=== PATIENT | female | born 1950 | race Caucasian/White ===

== ENCOUNTER 2018-03-25 19:53 | Inpatient (IN) | payer MEDICAID, OTHER ==
[2018-03-25] MEDS: ACETAMINOPHEN 500 MG TAB PO (22:32)
[2018-03-26 00:20] LABS: ADD MAN DIFF? NO
[2018-03-26 00:22] LABS: ABNORMAL IP MESSAGE 1; BASOPHILS % 0.2 % (0.0-2.0); EOSINOPHILS % 0.1 % (0.0-7.0); HEMATOCRIT 37.7 % (37.0-47.0); HEMOGLOBIN 12.6 g/dl (12.0-16.0); LYMPHOCYTES # 0.5 10^3/ul (0.8-2.9); LYMPHOCYTES % 3.8 % (15.0-51.0); MEAN CORPUSCULAR HEMOGLOBIN 30.5 pg (29.0-33.0); MEAN CORPUSCULAR HGB CONC 33.4 g/dl (32.0-37.0); MEAN CORPUSCULAR VOLUME 91.3 fl (82.0-101.0); MEAN PLATELET VOLUME 10.6 fl (7.4-10.4); MONOCYTE # 0.8 10^3/ul (0.3-0.9); MONOCYTES % 5.9 % (0.0-11.0); NEUTROPHIL # 12.3 10^3/ul (1.6-7.5); NEUTROPHILS % 89.1 % (39.0-77.0); PLATELET COUNT 218 10^3/UL (140-415); RED BLOOD COUNT 4.13 10^6/ul (4.20-5.40); RED CELL DISTRIBUTION WIDTH 11.9 % (11.5-14.5)
[2018-03-26 00:22] LABS: WHITE BLOOD COUNT 13.8 10^3/ul (4.8-10.8)
[2018-03-26 00:23] LABS: POSITIVE DIFF @See below
[2018-03-26] MEDS: DEXTROSE 5%-0.45% NACL 1,000 ML IV ×3 (00:41→17:16)
[2018-03-26 00:45] LABS: INR 1.08; PROTIME 14.1 Sec (11.9-14.9); PT RATIO 1.1
[2018-03-26 00:46] LABS: ALANINE AMINOTRANSFERASE 28 IU/L (13-69); ALBUMIN 4.7 g/dl (3.3-4.9); ALBUMIN/GLOBULIN RATIO 1.51; ALKALINE PHOSPHATASE 75 IU/L (42-121); ANION GAP 12 (5-13); ASPARTATE AMINO TRANSFERASE 50 IU/L (15-46); BILIRUBIN,INDIRECT 0.4 mg/dl (0-1.1); BILIRUBIN,TOTAL 0.4 mg/dl (0.2-1.3); BLOOD UREA NITROGEN 16 mg/dl (7-20); CALCIUM 9.9 mg/dl (8.4-10.2); CARBON DIOXIDE 26 mmol/L (21-31); CHLORIDE 103 mmol/L (97-110); CREATININE 0.53 mg/dl (0.44-1.00); Estimated GFR > 60 mL/min (>60); GLUCOSE 170 mg/dl (70-220); LIPASE 115 U/L (23-300); PARTIAL THROMBOPLASTIN TIME 27.6 Sec (23.0-35.0); POTASSIUM 4.1 mmol/L (3.5-5.1); SODIUM 141 mmol/L (135-144); TOTAL PROTEIN 7.8 g/dl (6.1-8.1)
[2018-03-26] MEDS ORDERED: NACL 0.9% 3 ML SYG IV (01:00)
[2018-03-26] MEDS: PANTOPRAZOLE 40 MG INJ IV (05:40)
[2018-03-26] MEDS: morphine 2 MG INJ IV ×2 (13:56→18:28)
[2018-03-26] MEDS: ONDANSETRON 4 MG INJ IV (21:59)
[2018-03-27] MEDS: DEXTROSE 5%-0.45% NACL 1,000 ML IV (05:17)
[2018-03-27] MEDS: PANTOPRAZOLE 40 MG INJ IV (05:53)
[2018-03-27 06:21] LABS: ADD MAN DIFF? NO
[2018-03-27 06:23] LABS: WHITE BLOOD COUNT 6.3 10^3/ul (4.8-10.8)
[2018-03-27 06:23] LABS: BASOPHILS % 0.5 % (0.0-2.0); EOSINOPHILS # 0.1 10^3/ul (0.0-0.5); EOSINOPHILS % 1.6 % (0.0-7.0); HEMATOCRIT 34.3 % (37.0-47.0); HEMOGLOBIN 11.3 g/dl (12.0-16.0); LYMPHOCYTES # 1.5 10^3/ul (0.8-2.9); LYMPHOCYTES % 23.9 % (15.0-51.0); MEAN CORPUSCULAR HEMOGLOBIN 30.2 pg (29.0-33.0); MEAN CORPUSCULAR HGB CONC 32.9 g/dl (32.0-37.0); MEAN CORPUSCULAR VOLUME 91.7 fl (82.0-101.0); MEAN PLATELET VOLUME 10.9 fl (7.4-10.4); MONOCYTE # 0.6 10^3/ul (0.3-0.9); MONOCYTES % 9.3 % (0.0-11.0); NEUTROPHIL # 4.1 10^3/ul (1.6-7.5); NEUTROPHILS % 64.4 % (39.0-77.0); PLATELET COUNT 179 10^3/UL (140-415); RED BLOOD COUNT 3.74 10^6/ul (4.20-5.40); RED CELL DISTRIBUTION WIDTH 11.9 % (11.5-14.5)
[2018-03-27 07:02] LABS: ALANINE AMINOTRANSFERASE 21 IU/L (13-69); ALBUMIN 3.7 g/dl (3.3-4.9); ALBUMIN/GLOBULIN RATIO 1.23; ALKALINE PHOSPHATASE 47 IU/L (42-121); ANION GAP 7 (5-13); ASPARTATE AMINO TRANSFERASE 26 IU/L (15-46); BILIRUBIN,INDIRECT 0.6 mg/dl (0-1.1); BILIRUBIN,TOTAL 0.6 mg/dl (0.2-1.3); BLOOD UREA NITROGEN 9 mg/dl (7-20); CALCIUM 9.1 mg/dl (8.4-10.2); CARBON DIOXIDE 29 mmol/L (21-31); CHLORIDE 103 mmol/L (97-110); CREATININE 0.58 mg/dl (0.44-1.00); Estimated GFR > 60 mL/min (>60); GLUCOSE 115 mg/dl (70-220); MAGNESIUM 1.9 mg/dl (1.7-2.5); POTASSIUM 3.8 mmol/L (3.5-5.1); SODIUM 139 mmol/L (135-144); TOTAL PROTEIN 6.7 g/dl (6.1-8.1)
[2018-03-27 07:10] LABS: HEMOGLOBIN A1C 5.2 % (0-5.9)
[2018-03-27 07:22] LABS: THYROID STIMULATING HORMONE 0.392 MIU/L (0.465-4.680)
[2018-03-27 10:42] LABS: FREE T4 (FREE THYROXINE) 1.43 ng/dl (0.78-2.44)
[2018-03-27] MEDS: ENOXAPARIN 40 MG/0.4 ML SYG SC (12:02)
[2018-03-27] MEDS: morphine 2 MG INJ IV (16:08)
[2018-03-28] MEDS: morphine 2 MG INJ IV ×5 (02:41→23:06)
[2018-03-28] MEDS: ONDANSETRON 4 MG INJ IV ×2 (02:41→12:50)
[2018-03-28] MEDS: PANTOPRAZOLE 40 MG INJ IV (05:06)
[2018-03-28 05:28] LABS: ADD MAN DIFF? NO
[2018-03-28 05:32] LABS: BASOPHILS % 0.3 % (0.0-2.0); EOSINOPHILS # 0.1 10^3/ul (0.0-0.5); HEMATOCRIT 33.6 % (37.0-47.0); HEMOGLOBIN 11.2 g/dl (12.0-16.0); LYMPHOCYTES # 1.3 10^3/ul (0.8-2.9); LYMPHOCYTES % 19.9 % (15.0-51.0); MEAN CORPUSCULAR HEMOGLOBIN 30.7 pg (29.0-33.0); MEAN CORPUSCULAR HGB CONC 33.3 g/dl (32.0-37.0); MEAN CORPUSCULAR VOLUME 92.1 fl (82.0-101.0); MEAN PLATELET VOLUME 11.2 fl (7.4-10.4); MONOCYTE # 0.5 10^3/ul (0.3-0.9); MONOCYTES % 7.8 % (0.0-11.0); NEUTROPHIL # 4.6 10^3/ul (1.6-7.5); NEUTROPHILS % 69.7 % (39.0-77.0); PLATELET COUNT 179 10^3/UL (140-415); RED BLOOD COUNT 3.65 10^6/ul (4.20-5.40); RED CELL DISTRIBUTION WIDTH 11.9 % (11.5-14.5)
[2018-03-28 05:32] LABS: WHITE BLOOD COUNT 6.5 10^3/ul (4.8-10.8)
[2018-03-28 06:09] LABS: ALANINE AMINOTRANSFERASE 21 IU/L (13-69); ALBUMIN 3.6 g/dl (3.3-4.9); ALKALINE PHOSPHATASE 54 IU/L (42-121); ANION GAP 7 (5-13); ASPARTATE AMINO TRANSFERASE 26 IU/L (15-46); BILIRUBIN,INDIRECT 0.4 mg/dl (0-1.1); BILIRUBIN,TOTAL 0.4 mg/dl (0.2-1.3); BLOOD UREA NITROGEN 20 mg/dl (7-20); CALCIUM 9.3 mg/dl (8.4-10.2); CARBON DIOXIDE 28 mmol/L (21-31); CHLORIDE 105 mmol/L (97-110); CREATININE 0.63 mg/dl (0.44-1.00); Estimated GFR > 60 mL/min (>60); GLUCOSE 97 mg/dl (70-220); POTASSIUM 4.1 mmol/L (3.5-5.1); SODIUM 140 mmol/L (135-144); TOTAL PROTEIN 6.6 g/dl (6.1-8.1)
[2018-03-28 06:39] LABS: PHOSPHORUS 3.9 mg/dl (2.5-4.9)
[2018-03-28] MEDS: ENOXAPARIN 40 MG/0.4 ML SYG SC (09:00)
[2018-03-28] MEDS: POLYETHYLENE GLYCOL 17 GM PACKET PO (23:19)
[2018-03-29] MEDS: hydrALAzine 20 MG INJ IV (02:54)
[2018-03-29] MEDS: ONDANSETRON 4 MG INJ IV (03:40)
[2018-03-29 05:08] LABS: ADD MAN DIFF? NO
[2018-03-29 05:22] LABS: WHITE BLOOD COUNT 11.1 10^3/ul (4.8-10.8)
[2018-03-29 05:22] LABS: BASOPHIL # 0.1 10^3/ul (0.0-0.1); BASOPHILS % 0.4 % (0.0-2.0); EOSINOPHILS # 0.1 10^3/ul (0.0-0.5); EOSINOPHILS % 1.1 % (0.0-7.0); HEMATOCRIT 32.6 % (37.0-47.0); LYMPHOCYTES # 1.3 10^3/ul (0.8-2.9); MEAN CORPUSCULAR HEMOGLOBIN 30.5 pg (29.0-33.0); MEAN CORPUSCULAR HGB CONC 33.7 g/dl (32.0-37.0); MEAN CORPUSCULAR VOLUME 90.3 fl (82.0-101.0); MEAN PLATELET VOLUME 11.1 fl (7.4-10.4); MONOCYTE # 0.8 10^3/ul (0.3-0.9); MONOCYTES % 6.7 % (0.0-11.0); NEUTROPHIL # 8.8 10^3/ul (1.6-7.5); NEUTROPHILS % 79.4 % (39.0-77.0); PLATELET COUNT 204 10^3/UL (140-415); RED BLOOD COUNT 3.61 10^6/ul (4.20-5.40); RED CELL DISTRIBUTION WIDTH 11.7 % (11.5-14.5)
[2018-03-29] MEDS: PANTOPRAZOLE 40 MG INJ IV (05:44)
[2018-03-29 05:49] LABS: ANION GAP 7 (5-13); BLOOD UREA NITROGEN 24 mg/dl (7-20); CALCIUM 9.2 mg/dl (8.4-10.2); CARBON DIOXIDE 28 mmol/L (21-31); CHLORIDE 103 mmol/L (97-110); CREATININE 0.78 mg/dl (0.44-1.00); Estimated GFR > 60 mL/min (>60); GLUCOSE 127 mg/dl (70-220); SODIUM 138 mmol/L (135-144)
[2018-03-29] MEDS ORDERED: METOCLOPRAMIDE 10 MG INJ (07:00)
[2018-03-29] MEDS: ENOXAPARIN 40 MG/0.4 ML SYG SC (08:58)
[2018-03-29] MEDS ORDERED: ONDANSETRON 4 MG INJ (09:49)
[2018-03-29] MEDS ORDERED: CEFAZOLIN 1 GM INJ (09:49)
[2018-03-29] MEDS ORDERED: LIDOCAINE 2% (SDV) 5 ML INJ (09:49)
[2018-03-29] MEDS ORDERED: PROPOFOL 20 ML (09:49)
[2018-03-29] MEDS ORDERED: MIDAZOLAM 1 MG/ML 2 ML INJ (10:03)
[2018-03-29] MEDS ORDERED: FENTAnyl 50 MCG/ML VIAL (10:04)
[2018-03-29] MEDS ORDERED: HYDROmorphONE 1 MG/5 ML IV SYRINGE IV ×3 (11:00)
[2018-03-29] MEDS ORDERED: DIPHENHYDRAMINE 50 MG INJ IV (11:00)
[2018-03-29] MEDS ORDERED: FENTAnyl 50 MCG/ML VIAL IV ×2 (11:00)
[2018-03-29] MEDS ORDERED: LABETALOL HCL 20MG INJ IV (11:00)
[2018-03-29] MEDS ORDERED: hydrALAzine 20 MG INJ IV (11:00)
[2018-03-29] MEDS ORDERED: ONDANSETRON 4 MG INJ IV (11:00)
[2018-03-29] MEDS ORDERED: ROPIVACAINE 0.5 % 30 ML VIAL (11:11)
[2018-03-29] MEDS ORDERED: PHENYLephrine (100 MCG/ML) 5ML SYG (11:46)
[2018-03-29] MEDS ORDERED: PHENYLephrine 10 MG INJ (11:56)
[2018-03-29] MEDS: POLYMYXIN/BACITRACIN 1L IRRIG (12:05)
[2018-03-29] MEDS ORDERED: LABETALOL HCL 20MG INJ (13:58)
[2018-03-29] MEDS: MEPERIDINE 25 MG INJ IV (14:53)
[2018-03-29 15:44] LABS: ADD MAN DIFF? NO
[2018-03-29 15:46] LABS: BASOPHILS % 0.5 % (0.0-2.0); EOSINOPHILS % 0.1 % (0.0-7.0); HEMATOCRIT 34.6 % (37.0-47.0); HEMOGLOBIN 11.2 g/dl (12.0-16.0); LYMPHOCYTES # 1.2 10^3/ul (0.8-2.9); MEAN CORPUSCULAR HGB CONC 32.4 g/dl (32.0-37.0); MEAN CORPUSCULAR VOLUME 92.8 fl (82.0-101.0); MEAN PLATELET VOLUME 11.1 fl (7.4-10.4); MONOCYTE # 0.6 10^3/ul (0.3-0.9); MONOCYTES % 6.8 % (0.0-11.0); NEUTROPHIL # 6.5 10^3/ul (1.6-7.5); PLATELET COUNT 209 10^3/UL (140-415); RED BLOOD COUNT 3.73 10^6/ul (4.20-5.40); RED CELL DISTRIBUTION WIDTH 11.8 % (11.5-14.5)
[2018-03-29 15:46] LABS: WHITE BLOOD COUNT 8.4 10^3/ul (4.8-10.8)
[2018-03-29] MEDS ORDERED: NACL 0.9% 3 ML SYG IV (16:00)
[2018-03-29] MEDS: CEFAZOLIN 2 GM/50 ML (PMX) 50 ML IVPB (18:42)
[2018-03-29] MEDS: SOD CHLORIDE 0.9% 1,000 ML IV ×2 (18:45→23:07)
[2018-03-29] MEDS: morphine 2 MG INJ IV (19:32)
[2018-03-29] MEDS: HYDROCODONE/APAP (5/325) TAB PO (20:48)
[2018-03-29] MEDS: morphine 4 MG/ML VIAL IV (22:40)
[2018-03-30] MEDS: CEFAZOLIN 2 GM/50 ML (PMX) 50 ML IVPB ×2 (00:21→08:36)
[2018-03-30] MEDS: HYDROCODONE/APAP (5/325) TAB PO ×2 (02:45→07:57)
[2018-03-30] MEDS: PANTOPRAZOLE 40 MG INJ IV (05:34)
[2018-03-30] MEDS: morphine 4 MG/ML VIAL IV ×2 (05:35→09:56)
[2018-03-30 06:09] LABS: ADD MAN DIFF? NO
[2018-03-30 06:13] LABS: WHITE BLOOD COUNT 7.8 10^3/ul (4.8-10.8)
[2018-03-30 06:13] LABS: BASOPHILS % 0.3 % (0.0-2.0); EOSINOPHILS # 0.1 10^3/ul (0.0-0.5); EOSINOPHILS % 0.6 % (0.0-7.0); HEMATOCRIT 28.5 % (37.0-47.0); HEMOGLOBIN 9.6 g/dl (12.0-16.0); LYMPHOCYTES # 1.1 10^3/ul (0.8-2.9); LYMPHOCYTES % 13.4 % (15.0-51.0); MEAN CORPUSCULAR HEMOGLOBIN 30.7 pg (29.0-33.0); MEAN CORPUSCULAR HGB CONC 33.7 g/dl (32.0-37.0); MEAN CORPUSCULAR VOLUME 91.1 fl (82.0-101.0); MEAN PLATELET VOLUME 10.8 fl (7.4-10.4); MONOCYTE # 1.1 10^3/ul (0.3-0.9); MONOCYTES % 14.6 % (0.0-11.0); NEUTROPHIL # 5.5 10^3/ul (1.6-7.5); NEUTROPHILS % 70.6 % (39.0-77.0); PLATELET COUNT 170 10^3/UL (140-415); RED BLOOD COUNT 3.13 10^6/ul (4.20-5.40); RED CELL DISTRIBUTION WIDTH 11.8 % (11.5-14.5)
[2018-03-30 06:37] LABS: ANION GAP 4 (5-13); BLOOD UREA NITROGEN 16 mg/dl (7-20); CALCIUM 8.6 mg/dl (8.4-10.2); CARBON DIOXIDE 31 mmol/L (21-31); CHLORIDE 102 mmol/L (97-110); CREATININE 0.61 mg/dl (0.44-1.00); Estimated GFR > 60 mL/min (>60); GLUCOSE 137 mg/dl (70-220); POTASSIUM 3.9 mmol/L (3.5-5.1); SODIUM 137 mmol/L (135-144)
[2018-03-30] MEDS: hydrALAzine 20 MG INJ IV ×2 (07:58→12:48)
[2018-03-30] MEDS: ENOXAPARIN 40 MG/0.4 ML SYG SC (08:37)
[2018-03-30] MEDS ORDERED: ENOXAPARIN 40 MG/0.4 ML SYG SC (09:00)
[2018-03-30] MEDS: METOPROLOL (XL) 50 MG TAB PO (12:48)
[2018-03-30] MEDS: HYDROmorphONE 0.5 MG/0.5 ML SYG IV ×4 (12:49→23:53)
[2018-03-30] MEDS: ONDANSETRON 4 MG INJ IV (14:03)
[2018-03-31] MEDS: HYDROmorphONE 0.5 MG/0.5 ML SYG IV ×3 (03:48→10:44)
[2018-03-31] MEDS: PANTOPRAZOLE (EC) 40 MG TAB PO (05:27)
[2018-03-31 06:28] LABS: ADD MAN DIFF? NO
[2018-03-31 06:30] LABS: BASOPHILS % 0.3 % (0.0-2.0); EOSINOPHILS # 0.1 10^3/ul (0.0-0.5); EOSINOPHILS % 0.8 % (0.0-7.0); HEMATOCRIT 28.3 % (37.0-47.0); HEMOGLOBIN 9.5 g/dl (12.0-16.0); LYMPHOCYTES # 1.2 10^3/ul (0.8-2.9); LYMPHOCYTES % 11.8 % (15.0-51.0); MEAN CORPUSCULAR HEMOGLOBIN 30.7 pg (29.0-33.0); MEAN CORPUSCULAR HGB CONC 33.6 g/dl (32.0-37.0); MEAN CORPUSCULAR VOLUME 91.6 fl (82.0-101.0); MEAN PLATELET VOLUME 11.1 fl (7.4-10.4); MONOCYTE # 1.1 10^3/ul (0.3-0.9); MONOCYTES % 10.5 % (0.0-11.0); NEUTROPHIL # 7.8 10^3/ul (1.6-7.5); NEUTROPHILS % 75.9 % (39.0-77.0); PLATELET COUNT 187 10^3/UL (140-415); RED BLOOD COUNT 3.09 10^6/ul (4.20-5.40); RED CELL DISTRIBUTION WIDTH 11.9 % (11.5-14.5)
[2018-03-31 06:30] LABS: WHITE BLOOD COUNT 10.3 10^3/ul (4.8-10.8)
[2018-03-31 07:05] LABS: ANION GAP 12 (5-13); BLOOD UREA NITROGEN 11 mg/dl (7-20); CARBON DIOXIDE 30 mmol/L (21-31); CHLORIDE 95 mmol/L (97-110); CREATININE 0.58 mg/dl (0.44-1.00); Estimated GFR > 60 mL/min (>60); GLUCOSE 102 mg/dl (70-220); POTASSIUM 3.3 mmol/L (3.5-5.1); SODIUM 137 mmol/L (135-144)
[2018-03-31 07:31] LABS: THYROID STIMULATING HORMONE 0.138 MIU/L (0.465-4.680)
[2018-03-31] MEDS: METOPROLOL (XL) 50 MG TAB PO (08:58)
[2018-03-31] MEDS: ENOXAPARIN 40 MG/0.4 ML SYG SC (08:58)
[2018-03-31] MEDS: hydrALAzine 20 MG INJ IV (10:44)
[2018-03-31] MEDS: POTASSIUM CHLORIDE (SR) 20 MEQ TAB PO (11:15)
[2018-03-31] MEDS: AMLODIPINE 5 MG TAB PO ×2 (11:15→20:18)
[2018-03-31] MEDS ORDERED: AMLODIPINE 5 MG TAB PO (11:30)
[2018-03-31] MEDS: HYDROCODONE/APAP (5/325) TAB PO ×2 (14:12→19:05)
[2018-04-01] MEDS: HYDROmorphONE 0.5 MG/0.5 ML SYG IV ×4 (00:38→20:39)
[2018-04-01] MEDS: PANTOPRAZOLE (EC) 40 MG TAB PO (05:55)
[2018-04-01] MEDS: HYDROCODONE/APAP (5/325) TAB PO ×2 (05:55→16:54)
[2018-04-01 07:18] LABS: ANION GAP 9 (5-13); BLOOD UREA NITROGEN 12 mg/dl (7-20); CALCIUM 8.8 mg/dl (8.4-10.2); CARBON DIOXIDE 32 mmol/L (21-31); CHLORIDE 96 mmol/L (97-110); CREATININE 0.55 mg/dl (0.44-1.00); Estimated GFR > 60 mL/min (>60); GLUCOSE 118 mg/dl (70-220); POTASSIUM 3.6 mmol/L (3.5-5.1); SODIUM 137 mmol/L (135-144)
[2018-04-01] MEDS: AMLODIPINE 5 MG TAB PO ×2 (08:34→20:39)
[2018-04-01] MEDS: METOPROLOL (XL) 50 MG TAB PO (08:35)
[2018-04-01] MEDS: ENOXAPARIN 40 MG/0.4 ML SYG SC (08:36)
[2018-04-02] MEDS: HYDROCODONE/APAP (5/325) TAB PO ×4 (00:52→20:48)
[2018-04-02] MEDS: PANTOPRAZOLE (EC) 40 MG TAB PO (05:14)
[2018-04-02] MEDS: HYDROmorphONE 0.5 MG/0.5 ML SYG IV ×4 (05:15→22:07)
[2018-04-02 06:13] LABS: ADD MAN DIFF? NO
[2018-04-02 06:28] LABS: WHITE BLOOD COUNT 7.1 10^3/ul (4.8-10.8)
[2018-04-02 06:28] LABS: BASOPHILS % 0.4 % (0.0-2.0); EOSINOPHILS # 0.2 10^3/ul (0.0-0.5); EOSINOPHILS % 3.1 % (0.0-7.0); HEMATOCRIT 26.2 % (37.0-47.0); HEMOGLOBIN 8.7 g/dl (12.0-16.0); LYMPHOCYTES # 1.5 10^3/ul (0.8-2.9); LYMPHOCYTES % 21.2 % (15.0-51.0); MEAN CORPUSCULAR HEMOGLOBIN 30.9 pg (29.0-33.0); MEAN CORPUSCULAR HGB CONC 33.2 g/dl (32.0-37.0); MEAN CORPUSCULAR VOLUME 92.9 fl (82.0-101.0); MEAN PLATELET VOLUME 10.9 fl (7.4-10.4); MONOCYTE # 0.7 10^3/ul (0.3-0.9); MONOCYTES % 9.9 % (0.0-11.0); NEUTROPHIL # 4.6 10^3/ul (1.6-7.5); NEUTROPHILS % 64.8 % (39.0-77.0); PLATELET COUNT 266 10^3/UL (140-415); RED BLOOD COUNT 2.82 10^6/ul (4.20-5.40); RED CELL DISTRIBUTION WIDTH 11.9 % (11.5-14.5)
[2018-04-02 07:05] LABS: ANION GAP 2 (5-13); BLOOD UREA NITROGEN 12 mg/dl (7-20); CALCIUM 8.7 mg/dl (8.4-10.2); CARBON DIOXIDE 35 mmol/L (21-31); CHLORIDE 100 mmol/L (97-110); CREATININE 0.49 mg/dl (0.44-1.00); Estimated GFR > 60 mL/min (>60); GLUCOSE 106 mg/dl (70-220); POTASSIUM 3.4 mmol/L (3.5-5.1); SODIUM 137 mmol/L (135-144)
[2018-04-02] MEDS: ENOXAPARIN 40 MG/0.4 ML SYG SC (08:40)
[2018-04-02] MEDS: METOPROLOL (XL) 50 MG TAB PO (08:40)
[2018-04-02] MEDS: AMLODIPINE 5 MG TAB PO ×2 (08:41→20:48)
[2018-04-02] MEDS: POTASSIUM CHLORIDE (SR) 20 MEQ TAB PO (14:46)
[2018-04-03] MEDS: HYDROCODONE/APAP (5/325) TAB PO ×3 (02:18→16:26)
[2018-04-03] MEDS: PANTOPRAZOLE (EC) 40 MG TAB PO (05:32)
[2018-04-03] MEDS: HYDROmorphONE 0.5 MG/0.5 ML SYG IV ×5 (05:33→18:03)
[2018-04-03 06:41] LABS: ANION GAP 2 (5-13); BLOOD UREA NITROGEN 14 mg/dl (7-20); CALCIUM 9.4 mg/dl (8.4-10.2); CARBON DIOXIDE 33 mmol/L (21-31); CHLORIDE 103 mmol/L (97-110); CREATININE 0.53 mg/dl (0.44-1.00); Estimated GFR > 60 mL/min (>60); GLUCOSE 105 mg/dl (70-220); SODIUM 138 mmol/L (135-144)
[2018-04-03 06:55] LABS: FREE T4 (FREE THYROXINE) 2.34 ng/dl (0.78-2.44)
[2018-04-03] MEDS: METOPROLOL (XL) 50 MG TAB PO (08:28)
[2018-04-03] MEDS: AMLODIPINE 5 MG TAB PO (08:29)
[2018-04-03] MEDS: ENOXAPARIN 40 MG/0.4 ML SYG SC (08:35)
== END 2018-04-03 19:40 | disposition home or self-care (01) | DRG 494 ==
LOC: FTE 19:53 → PP2 03-26 00:37
PROC: 0QSH04Z Reposition Left Tibia with Internal Fixation Device, Open Approach (ICD-10-PCS; principal; 2018-03-29 11:16)
DX: S82.142A Displaced bicondylar fracture of left tibia, initial encounter for closed fracture (principal); M79.651 Pain in right thigh; D72.829 Elevated white blood cell count, unspecified; I10 Essential (primary) hypertension; R00.0 Tachycardia, unspecified; D64.9 Anemia, unspecified; V03.10XA Pedestrian on foot injured in collision with car, pick-up truck or van in traffic accident, initial encounter; Y92.410 Unspecified street and highway as the place of occurrence of the external cause
CPT/HCPCS: 36415; 71045; 73550; 73560; 73562; 73590; 73700; 80048; 80053; 83036; 83690; 83735; 84100; 84439; 84443; 85025; 85610; 85730; 86850; 86900; 86901; 86920; 93005; 93306; 97116; 97162; 97530; 99285-25